=== PATIENT | male | born 1950 | race Caucasian/White ===

== ENCOUNTER 2019-10-13 15:58 | Emergency (ER) | payer MEDICARE ==
--- NOTE | 2019-10-13 17:06 | ED ---
Influenza-Like Illness - HPI Summary HPI Summary: 69-year-old male presents to the emergency department today complaining of cough. he states approximately 2 weeks ago he had cough, fever, nasal congestion. He states today he is here seeking antibiotics as he believes he has pneumonia. This time patient states he has been afebrile for approximately one week. Patient denies recent travel. Patient otherwise feels well and is in no acute distress time. Patient denies fever, chest pain, abdominal pain, urination, nausea, vomiting or diarrhea. - History of Current Complaint Chief Complaint: EDGeneral Time Seen by Provider: 10/13/19 16:40 Hx Obtained From: Patient Onset/Duration: Gradual Onset Severity: Mild Associated Signs & Symptoms: Cough - Allergy/Home Medications Allergies/Adverse Reactions: Allergies Allergy/AdvReac Type Severity Reaction Status Date / Time No Known Allergies Allergy Verified 10/13/19 16:06 PMH/Surg Hx/FS Hx/Imm Hx - Immunization History Date of Influenza Vaccine: august 2019 Immunizations Up to Date: Yes Infectious Disease History: No Infectious Disease History: Denies: Traveled Outside the [place] in Last 30 Days - Social History Alcohol Use: Occasionally Substance Use Type: Reports: Marijuana Substance Use Comment - Amount & Last Used: occasional Smoking Status (MU): Former Smoker Review of Systems Constitutional: Negative Eyes: Negative ENT: Negative Cardiovascular: Negative Positive: Cough Gastrointestinal: Negative Genitourinary: Negative Musculoskeletal: Negative Skin: Negative Neurological/Mental Status: Negative Psychological: Normal All Other Systems Reviewed And Are Negative: Yes Physical Exam - Summary Physical Exam Summary: Patient distress. Patient speaks in full sentences. No labored breathing. Lungs clear to auscultation. Triage Information Reviewed: Yes Vital Signs On Initial Exam: Initial Vitals Temp Pulse Resp BP Pulse Ox 99.2 F 80 16 140/93 98 10/13/19 15:59 10/13/19 15:59 10/13/19 15:59 10/13/19 15:59 10/13/19 15:59 Vital Signs Reviewed: Yes Appearance: Positive: Well-Appearing, No Pain Distress, Well-Nourished Skin: Positive: Warm, Skin Color Reflects Adequate Perfusion Eyes: Positive: EOMI, JOVAN ENT: Positive: Hearing grossly normal, Pharynx normal Respiratory/Lung Sounds: Positive: Clear to Auscultation, Breath Sounds Present Cardiovascular: Positive: RRR, S1, S2 Abdomen Description: Positive: Nontender, Soft Bowel Sounds: Positive: Present Musculoskeletal: Positive: Strength/ROM Intact Neurological: Positive: Sensory/Motor Intact, Alert, Oriented to Person Place, Time, Normal Gait, Facial Symmetry, Speech Normal Psychiatric: Positive: Normal, Affect/Mood Appropriate AVPU Assessment: Alert Procedures - Sedation Patient Received Moderate/Deep Sedation with Procedure: No Diagnostics - Vital Signs Vital Signs Temp Pulse Resp BP Pulse Ox 10/13/19 15:59 99.2 F 80 16 140/93 98 - Laboratory Result Diagrams: 10/13/19 17:06 10/13/19 17:06 Lab Statement: Any lab studies that have been ordered have been reviewed, and results considered in the medical decision making process. Flu Symptom Course/Dx - Course Course Of Treatment: Patient was evaluated in emergency department today for cough. Vitals noted. Patient afebrile. Chest x-ray was done which showed no acute pathology. Laboratory studies show no evidence of leukocytosis, no elevation in CRP, no anemia or electrolytes disturbance. Patient likely suffering from resolving viral upper respiratory infection. Patient discharged with outpatient follow-up. - Diagnoses Differential Diagnosis/HQI/PQRI: Positive: Bronchitis, Influenza, Pneumonia, Upper Respiratory Infection Provider Diagnoses: Cough Discharge ED - Sign-Out/Discharge Documenting (check all that apply): Patient Departure - Discharge Plan Condition: Stable Disposition: HOME Patient Education Materials: Upper Respiratory Infection (ED) Referrals: Lauryn Martinez DO [Primary Care Provider] - 3 Days Additional Instructions: You were seen in the emergency department today and diagnosed with an upper respiratory infection. This is an upper respiratory virus which causes cough, muscle aches, fever, nausea, trouble breathing. Viruses are self-limiting and will go away on their own. Be sure to stay hydrated and rest. You may take over- the-counter decongestants as needed for your symptoms as well as NyQuil at night to improve sleep. Take Tylenol every 6 hours as needed for fever. Please see your primary care physician in 5 days for further evaluation and management. Please do not return to work or school until 24 hours after your fever breaks. Please return to the emergency department immediately if you develop any new or worsening symptoms. - Billing Disposition and Condition Condition: STABLE Disposition: Home
[2019-10-13 17:20] LABS: ABS Eosinophils 0.2 10^3/ul (0-0.6); ABS Lymphocytes 2.5 10^3/ul (1.0-4.8); ABS Monocytes 0.9 10^3/ul (0-0.8); ABS Neutrophils 2.4 10^3/ul (1.5-7.7); Eosinophil % 3.6 %; Hematocrit 43 % (42-52); Hemoglobin 14.6 g/dL (14.0-18.0); Lymphocyte % 40.9 %; Mean Corpuscular HGB Conc 34 g/dL (31-36); Mean Corpuscular Hemoglobin 28 pg (27-31); Mean Corpuscular Volume 82 fL (80-94); Mean Platelet Volume 7.7 fL (7.4-10.4); Nucleated Red Blood Cells % 0.3; Platelet Count 179 10^3/uL (150-450); Red Blood Count 5.16 10^6 /uL (4.18-5.48); Red Cell Distribution Width 14 % (10-15); White Blood Count 6.1 10^3/uL (3.5-10.8)
[2019-10-13 17:34] LABS: Albumin/Globulin Ratio 1.6 (1-3); BUN/Creatinine Ratio 21.6 (8-20); C Reactive Protein 2.03 mg/L (<8.01); Calcium 9.2 mg/dL (8.6-10.3); EGFR African American 92.3 (>60); EGFR Non-African American 76.3 (>60); Globulin 2.5 g/dL (2-4); Total Bilirubin 0.4 mg/dL (0.2-1.0); Total Protein 6.5 g/dL (6.4-8.9)
[2019-10-13 18:28] LABS: Potassium 3.8 mmol/L (3.5-5.0)
[2019-10-13 19:00] VITALS: BP 133/92
== END 2019-10-13 17:55 | disposition home or self-care (01) ==
LOC: ED 15:58
DX: R05 Cough (principal); Z87.891 Personal history of nicotine dependence
CPT/HCPCS: 36415; 71046; 80053; 85025; 86140; 99281

== ENCOUNTER 2024-01-07 10:10 | Observation (INO) ==
[2024-01-07 11:05] LABS: Rapid COVID-19 Molecular Undetected (Undetected)
[2024-01-07] MEDS ORDERED: Gentamicin ADULT 40 MG/ML VIAL (2 ML VIAL = 80 MG) ONE (11:36)
[2024-01-07] MEDS ORDERED: Ondansetron 4 mg VIAL 2 MG/ML 2 ml VIAL IV PRN (11:52)
[2024-01-07] MEDS ORDERED: Dexamethasone IV 4 MG/ML VIAL 1 ml VIAL ONE (12:41)
[2024-01-07] MEDS ORDERED: fentaNYL 100 mcg/2 ml 50 MCG/ML VIAL ONE (12:41)
[2024-01-07] MEDS ORDERED: Midazolam 2 mg/2 ml VIAL 1 mg/ml 2 ml VIAL (2 mg) ONE (12:41)
[2024-01-07] MEDS ORDERED: Ondansetron 4 mg VIAL 2 MG/ML 2 ml VIAL ONE (12:41)
[2024-01-07] MEDS ORDERED: Lidocaine 2% PF 5 ML VIAL ONE (12:42)
[2024-01-07] MEDS ORDERED: Rocuronium 50 mg VIAL 10 mg/ml 5 ml VIAL (50 mg) ONE (13:26)
[2024-01-07] MEDS ORDERED: Phenylephrine 40 mcg/mL 10mL (400mcg) SYRINGE ONE (14:16)
[2024-01-07] MEDS ORDERED: Furosemide 20 mg/2 ml IV VIAL ONE (14:27)
[2024-01-07] MEDS: Ampicillin ADVAN 2 GM in NS 0.9% 100 ML 100 ML IVPB ONE (16:38)
[2024-01-07] MEDS: Gentamicin ADULT 320 MG in NS 0.9% 100 ml BAG 100 ML IVPB ONE (16:38)
[2024-01-07] MEDS: NS 0.9% 1000 ml BAG 1,000 ML IV SCH (16:39)
[2024-01-07] MEDS: Neomycin/Polym/Bacit TOP OINT 15 GM TOPICAL SCH (16:43)
[2024-01-07] MEDS: Alfuzosin ER 10 mg TAB.ER (NF) 10 MG TAB.ER PO SCH (17:51)
[2024-01-07] MEDS: Magnesium Hydroxide LIQ 30 ML UDC PO SCH (21:56)
[2024-01-08 09:26] VITALS: BP 102/58
== END 2024-01-08 12:10 | disposition home or self-care (01) ==
LOC: OR 10:10 → SSU 10:10
PROVIDERS: ADMIT Urology; ATTEND Urology